=== PATIENT | male | born 1940 | race Caucasian/White ===

== ENCOUNTER → 2016-10-15 | Outpatient (CLI) | payer OTHER | END | disposition home or self-care (01) | LOC: C.PATHSPEC 17:29 | PROVIDERS: ATTEND Urology | DX: C61 Malignant neoplasm of prostate (principal); R97.20 Elevated prostate specific antigen [PSA] ==

== ENCOUNTER 2017-11-05 08:54 | Observation (INO) | payer OTHER ==
[2017-10-21 09:20] VITALS: BMI 37.0
[2017-10-24 12:09] VITALS: Ht 185.4 cm; Wt 133.8 kg
--- NOTE | 2017-10-24 12:09 | PAT Medication Instructions ---
Service Date Oct 24, 2017. Current Home Medication List Acetaminophen (Tylenol Arthritis Ext Rel), 1,300 MG PO Q8H PRN for PRN Albuterol Hfa (Ventolin Hfa), 2-4 PUFFS INH Q6H PRN for SOB/Wheezing Ascorbic Acid (Vitamin C), 1,000 MG PO QPM Atorvastatin (Lipitor), 1 TAB PO QPM Biotin (Biotin), 1 CAP PO QAM Calcium Carbonate-Cholecalcife (Caltrate 600+D), 1 TAB PO QPM Docusate Calcium (Stool Softener), 1 CAP PO QAM Glucosamine Sulfate (Glucosamine), 1,000 MG PO QPM Insulin Glargine (Lantus), 30 SC QAM Insulin Glargine (Lantus), 25 SC QPM Leflunomide (Arava), 1 TAB PO QAM Metformin Hcl (Glucophage Ext Rel), 1,000 MG PO BID Metoprolol Tartrate (Lopressor) (Lopressor), 12.5 MG PO BID Mirabegron (Myrbetriq Er), 50 MG PO QPM Multiple Vitamins W/ Minerals (Centrum Silver 50+Men), 1 TAB PO QAM Ocuvite Preservision (Ocuvite Preservision), 1 TAB PO BID Potassium Gluconate (Potassium Gluconate), 595 MG PO QPM Prednisone (Prednisone), 5 MG PO QAM Tamsulosin Hcl (Flomax), 1 CAP PO QPM [Humalog], 20-30 UNITS SC TIDM Medication Instructions For Your Scheduled Surgery - Check with surgeon and prescribing physician for instructions Leflunomide (Arava), 1 TAB PO QAM - Hold the following medications starting 10/24/17: Glucosamine Sulfate (Glucosamine), 1,000 MG PO QPM Biotin (Biotin), 1 CAP PO QAM - Hold the following medications the morning of surgery: [Humalog], 20-30 UNITS SC TIDM Ocuvite Preservision (Ocuvite Preservision), 1 TAB PO BID Multiple Vitamins W/ Minerals (Centrum Silver 50+Men), 1 TAB PO QAM Metformin Hcl (Glucophage Ext Rel), 1,000 MG PO BID Docusate Calcium (Stool Softener), 1 CAP PO QAM - Take the following medications the morning of surgery with a sip of water: Acetaminophen (Tylenol Arthritis Ext Rel), 1,300 MG PO Q8H PRN for PRN (okay to take up to 4 hours prior to surgery if needed) Albuterol Hfa (Ventolin Hfa), 2-4 PUFFS INH Q6H PRN for SOB/Wheezing (if needed) Metoprolol Tartrate (Lopressor) (Lopressor), 12.5 MG PO BID Prednisone (Prednisone), 5 MG PO QAM - Take the following medications as scheduled the night before surgery: [Humalog], 20-30 UNITS SC TIDM Tamsulosin Hcl (Flomax), 1 CAP PO QPM Potassium Gluconate (Potassium Gluconate), 595 MG PO QPM Ocuvite Preservision (Ocuvite Preservision), 1 TAB PO BID Mirabegron (Myrbetriq Er), 50 MG PO QPM Metoprolol Tartrate (Lopressor) (Lopressor), 12.5 MG PO BID Metformin Hcl (Glucophage Ext Rel), 1,000 MG PO BID Insulin Glargine (Lantus), 25 SC QPM Calcium Carbonate-Cholecalcife (Caltrate 600+D), 1 TAB PO QPM Atorvastatin (Lipitor), 1 TAB PO QPM Ascorbic Acid (Vitamin C), 1,000 MG PO QPM Acetaminophen (Tylenol Arthritis Ext Rel), 1,300 MG PO Q8H PRN for PRN (if needed) Albuterol Hfa (Ventolin Hfa), 2-4 PUFFS INH Q6H PRN for SOB/Wheezing (if needed) - For Insulin Dependent Diabetic patients: Test blood sugar A.M. of surgery. - If Blood sugar greater than 150, take half of your regular dose of: Insulin Glargine (Lantus) take 15 units - If blood sugar less than 150, do not take any: Insulin Glargine (Lantus), 30 SC QAM If you have any questions please call us at [phone] or [phone] or [phone]
--- NOTE | 2017-10-24 13:07 | DIAGNOSTIC IMAGING REPORT ---
CERVICAL SPINE 2 OR 3 VIEWS HISTORY: Preoperative evaluation PREOP, RHEUMATOID ARTHRITIS COMPARISON: None. FINDINGS: The cervical spine is visualized from C1 through the superior endplate of T1. There is no fracture. No subluxation. Disc spaces are preserved. Prevertebral soft tissues and the atlantodens interval are intact. IMPRESSION: No fracture or subluxation within the cervical spine. No evidence for subluxation with the patient in flexion and extension. The above report was generated using voice recognition software. It may contain grammatical, syntax or spelling errors. Electronically signed by: Darek Russo M.D. 10/24/2017 1:06 PM Dictated Date/Time: 10/24/2017 1:05 PM
--- NOTE | 2017-10-24 13:08 | DIAGNOSTIC IMAGING REPORT ---
CHEST 2 VIEWS ROUTINE HISTORY: 77 years-old Male PAT preoperative exam. No acute chest complaints COMPARISON: None available TECHNIQUE: PA and lateral views of the chest FINDINGS: Cardiac silhouette is mildly enlarged. Calcification of the aorta. Lungs are mildly hypoinflated. No pneumothorax or pleural effusion. Mild left hemidiaphragm elevation. Subsegmental linear left basilar opacities. No overt pulmonary edema. Degenerative changes of the shoulders and spine. IMPRESSION: 1. Cardiomegaly without overt pulmonary edema. 2. Mild left hemidiaphragm elevation with subsegmental left basilar opacities suggesting atelectasis. The above report was generated using voice recognition software. It may contain grammatical, syntax or spelling errors. Electronically signed by: Sharif Mathews M.D. 10/24/2017 1:06 PM Dictated Date/Time: 10/24/2017 1:05 PM
[2017-10-24 13:15] LABS: BASO % 0.1 %; BASO ABS # 0.01 K/uL (0-0.2); EOS % 1.2 %; HEMATOCRIT 41.5 % (42-52); HEMOGLOBIN 13.9 g/dL (14.0-18.0); IG# 0.02 K/uL (0.00-0.02); LYMPH % 16.1 %; LYMPH ABS # 1.37 K/uL (1.2-3.4); MEAN CELL VOLUME 95.2 fL (80-100); MEAN CORPUSCULAR HEMOGLOBIN 31.9 pg (25-34); MEAN CORPUSCULAR HGB CONC 33.5 g/dl (32-36); MEAN PLATELET VOLUME 10.4 fL (7.4-10.4); MONO % 14.3 %; MONO ABS # 1.22 K/uL (0.11-0.59); NEUT % 68.1 %; NEUT ABS # 5.79 K/uL (1.4-6.5); PLATELET COUNT 200 K/uL (130-400); RED CELL DISTRIBUTION WIDTH CV 13.5 % (11.5-14.5); WHITE BLOOD COUNT 8.51 K/uL (4.8-10.8)
[2017-10-24 13:27] LABS: CALCIUM 8.4 mg/dl (8.5-10.1); CREATININE 0.91 mg/dl (0.60-1.40); POTASSIUM 4.3 mmol/L (3.5-5.1)
[2017-11-05] VITALS (7 sets, daily range): BP systolic 126–163; BP diastolic 46–83; PULSE 54–68; TEMP 36.3–37.1; O2SAT 92–99
[~2017-11-05] VITALS: Ht 185.4 cm; Wt 133.8 kg
[~2017-11-05 08:54] MED LIST: ACET1TAB84 PO; ASCO10003 PO; ASPI81CH2 PO; ATOR-24 PO; BIOT1CAP3 PO; CALC-354 PO; CIPROFLOXACIN / D5W 400 MG IV SCH; DOCU1CAP78 PO; GLUC10007 PO; HUMALOG SC; INSDGI SC; LACTATED RINGER'S 1000ML 1,000 ML IV SCH; LEFL20TA PO; METF1TAB53 PO; METO25TA56 PO; MIRA100T PO; MISSING PHYSICIAN SIGNATURE ON ORDER SCH; MULT-1093 PO; MULT-190 PO; POTA1TAB PO; PRED-301 PO; TAMS0.4C38 PO; VNTHFA/IN INH
[2017-11-05] MEDS ORDERED: CIPROFLOXACIN 400MG / 200ML D5W ONE (09:53)
[2017-11-05] MEDS ORDERED: DEXAMETHASONE SOD INJ 4 MG/ML VIAL ONE (11:53)
[2017-11-05] MEDS ORDERED: LIDOCAINE HCL 2% 2 ML VIAL (20MG/ML) ONE (11:53)
[2017-11-05] MEDS ORDERED: FENTANYL CITRATE INJ 50 MCG/1 ML 2 ML VIAL ONE (11:54)
[2017-11-05] MEDS ORDERED: PROPOFOL IV EMULSION 10 MG/ML 20 ML VIAL ONE (11:54)
[2017-11-05] MEDS ORDERED: ONDANSETRON INJ 2 MG/ML 2 ML VIAL ONE ×2 (11:54→13:09)
--- NOTE | 2017-11-05 12:17 | History & Physical Bridge Note ---
H&P Re-Evaluation Bridge Note: I have examined the patient, reviewed the History & Physical and in the interval since the performance of the History & Physical I have noted the following changes of clinical significance: No changes noted
[2017-11-05] MEDS ORDERED: ATROPINE SULFATE 0.1 MG/ML 5ML SYR IV PRN (12:45)
[2017-11-05] MEDS ORDERED: EpHEDrine SULFATE INJ 50 MG/ML AMP IV PRN (12:45)
[2017-11-05] MEDS ORDERED: ONDANSETRON INJ 2 MG/ML 2 ML VIAL IV PRN ×2 (12:45→14:30)
[2017-11-05] MEDS ORDERED: EpHEDrine SULFATE 50MG/5ML SYR ONE (13:09)
[2017-11-05] MEDS ORDERED: PHENYLEPHRINE 100MCG/ML 5ML SYR ONE (13:09)
--- NOTE | 2017-11-05 14:13 | [facility] Operative Report ---
Operative Report Operative Date Nov 05, 2017. Pre-Operative Diagnosis Nocturia Post-Operative Diagnosis Nocturia Procedure(s) Performed Transurthral resection prostate Surgeon Dr. Page Almeida Contact Printer Dry Film Surgeon(s) none Estimated Blood Loss 10 ml Specimens A: prostate chips Drains 22F catheter Anesthesia Type General Disposition yes Recovery Room / PACU Description of Procedure Patient was identified in the preoperative holding area, appropriate informed consents reviewed and completed and the patient was transported to the operating suite. Upon arrival he received appropriate preoperative antibiotics in the form of ciprofloxacin. Adequate general anesthesia was achieved, he was placed in dorsal lithotomy position where he was sterilely prepped and draped in standard fashion. To begin the case I passed a 27 Bulgarian resectoscope with 30 lens and visual obturator. Inspection of the urethra revealed no evidence of stricture disease. Upon entering the prostate, it became abundantly clear that he has a significantly enlarged prostate with lateral lobe obstruction as well as a large intravesical component and high bladder neck. I was able to navigate the scope beyond the prostate and evaluate the bladder which revealed ureteral orifices to be in orthotopic position. He has a moderately trabeculated bladder. After my inspection I exchanged the visual apple peeler operator for resecting element, initially choosing a button electrode. I began by incising the bladder neck at 5 and 7:00 with care to avoid encroachment upon the ureteral orifices. I then exchange the button electrode for a loop device and resected intravesical median lobe flush with the bladder neck. I then proceeded to resect the left lateral lobe followed by the right lateral lobe with the button electrode. I then irrigated all chips out of the bladder utilizing a Kellie syringe as well as the instrument itself. I then returned to the button electrode and obtain meticulous hemostasis from the lateral maradiaga as well as continued vaporizing any redundant tissue. I concluded the resection by trimming the apical tissue and a small amount of redundant anterior tissue. I checked the bladder to be sure all chips were evacuated before emptying the bladder and withdrawing my scope. A 22 Bulgarian catheter was inserted without difficulty. The case was subsequent concluded and he was taken to the PACU in stable condition. I attest to the content of the Intraoperative Record and any orders documented therein. Any exceptions are noted below. I attest to the content of the Intraoperative Record and any orders documented therein. Any exceptions are noted below.
[2017-11-05] MEDS ORDERED: ACETAMINOPHEN 325 MG TAB PO PRN (14:30)
[2017-11-05] MEDS ORDERED: ALBUTEROL HFA 8 GM INHALER INH PRN (14:30)
[2017-11-05] MEDS ORDERED: ACETAMINOPHEN/CODEINE 300/30MG TAB PO PRN (14:30)
[2017-11-05] MEDS: FENTANYL CITRATE INJ 50 MCG/1 ML 2 ML VIAL IV PRN ×4 (14:32→14:55)
[2017-11-05] MEDS ORDERED: PHARMACY GLYCEMIC MGMT CONSULT PRN (15:17)
[2017-11-05] MEDS ORDERED: IV FLUIDS COMPLETED PRN (16:30)
--- NOTE | 2017-11-05 16:35 | Anesthesiology Progress Note ---
Anesthesia Post Op Note Date & Time Nov 05, 2017 at 16:35 Vital Signs Pain Intensity: 5.0 Vital Signs Past 12 Hours Date Time Temp Pulse Resp B/P (MAP) Pulse Ox O2 Delivery O2 Flow Rate FiO2 11/05/17 15:30 58 19 140/71 97 Nasal Cannula 2 11/05/17 15:15 53 14 132/70 99 Nasal Cannula 2 11/05/17 15:05 36.1 57 14 137/75 98 Nasal Cannula 2 11/05/17 14:55 60 17 144/69 98 Nasal Cannula 2 11/05/17 14:45 60 14 139/76 98 Nasal Cannula 2 11/05/17 14:35 62 12 130/77 100 Oxymask 10 11/05/17 14:25 65 16 141/78 98 Oxymask 10 11/05/17 14:16 36.1 68 14 142/76 98 Oxymask 10 11/05/17 09:28 37.1 60 18 163/83 (109) 95 Room Air Notes Mental Status: alert / awake / arousable, participated in evaluation Pt Amnestic to Procedure: Yes Nausea / Vomiting: adequately controlled Pain: adequately controlled Airway Patency, RR, SpO2: stable & adequate BP & HR: stable & adequate Hydration State: stable & adequate Anesthetic Complications: no major complications apparent
[2017-11-05] MEDS ORDERED: GLUCAGON FOR INJ 1 MG VIAL IM PRN (17:00)
[2017-11-05] MEDS ORDERED: GLUCOSE 10 TABS/TUBE PO PRN (17:00)
[2017-11-05] MEDS ORDERED: DEXTROSE 50% 50 ML SYR IV PRN (17:00)
[2017-11-05] MEDS ORDERED: GLUCOSE 40% GEL 15 GM TUBE PO PRN (17:00)
[2017-11-05] MEDS ORDERED: CARBOHYDRATES FOR HYPOGLYCEMIA PO PRN (17:00)
[2017-11-05] MEDS: INSULIN ASPART 100 UNITS/ML 3 ML PEN SC SCH ×2 (17:17→20:55)
[2017-11-05] MEDS: LACTATED RINGER'S 1000ML 1,000 ML IV SCH (20:13)
[2017-11-05] MEDS: CIPROFLOXACIN 500 MG TAB PO SCH (20:49)
[2017-11-05] MEDS: CEROVITE ADV FORMULA TAB PO SCH (20:49)
[2017-11-05] MEDS: METOPROLOL TARTRATE 25 MG TAB PO SCH (20:50)
[2017-11-05] MEDS ORDERED: NON-FORMULARY MEDICATION (Potassium Gluconate 595 MG) PO SCH (21:00)
[2017-11-05] MEDS ORDERED: ATORVASTATIN 40 MG TAB PO SCH (21:00)
[2017-11-05] MEDS ORDERED: LANTUS PER UNIT CHARGE SQ STA (21:33)
[2017-11-06] MEDS ORDERED: NURSING DECISION MEDICATION ORDER SCH (00:30)
[2017-11-06] MEDS ORDERED: INSULIN ASPART 100 UNITS/ML 3 ML PEN SC SCH (02:00)
[2017-11-06] MEDS: LACTATED RINGER'S 1000ML 1,000 ML IV SCH ×2 (03:45→12:00)
[2017-11-06 04:04] VITALS: BP 122/66; PULSE 63; TEMP 36.8; O2SAT 93
[2017-11-06 06:57] LABS: BASO % 0.1 %; BASO ABS # 0.01 K/uL (0-0.2); EOS % 0.1 %; EOS ABS # 0.01 K/uL (0-0.5); HEMATOCRIT 40.3 % (42-52); HEMOGLOBIN 13.8 g/dL (14.0-18.0); IG# 0.02 K/uL (0.00-0.02); LYMPH % 10.9 %; LYMPH ABS # 1.12 K/uL (1.2-3.4); MEAN CORPUSCULAR HEMOGLOBIN 32.5 pg (25-34); MEAN CORPUSCULAR HGB CONC 34.2 g/dl (32-36); MEAN PLATELET VOLUME 10.2 fL (7.4-10.4); MONO ABS # 1.34 K/uL (0.11-0.59); NEUT % 75.7 %; PLATELET COUNT 186 K/uL (130-400); RED CELL DISTRIBUTION WIDTH CV 13.3 % (11.5-14.5); RED CELL DISTRIBUTION WIDTH SD 45.9 fL (36.4-46.3)
[2017-11-06 07:18] LABS: HEMOGLOBIN A1C 6.7 % (4.5-5.6)
[2017-11-06 07:37] LABS: CALCIUM 8.5 mg/dl (8.5-10.1); CREATININE 0.94 mg/dl (0.60-1.40)
[2017-11-06 07:56] VITALS: BP 128/74; PULSE 58; TEMP 37.1; O2SAT 94
[2017-11-06] MEDS ORDERED: PHEN95TA14 PO ×2 (08:04→08:10)
[2017-11-06] MEDS ORDERED: CPR500 PO (08:04)
--- NOTE | 2017-11-06 08:05 | Discharge Instructions ---
Discharge Instructions Date of Service Nov 06, 2017. Admission Reason for Admission: Benign Prostatic Hyperplasia W/Urinary Obstruction Discharge Discharge Diagnosis / Problem: BPH Discharge Goals Goal(s): Decrease discomfort, Improve function, Increase independence, Improve disease control, Prevent Disease Progression Activity Recommendations Activity Limitations: resume your previous activity Lifting Limitations: none Exercise/Sports Limitations: none May Resume Sexual Activity: when tolerated Shower/Bathe: no limitations Driving or Machine Use: no limitations . Instructions / Follow-Up Instructions / Follow-Up Please keep your previously scheduled follow up appointment with Dr. Almeida Current Hospital Diet Patient's current hospital diet: Diabetes Type 2 Diet Discharge Diet Recommended Diet: Diabetes Type 2 Diet Procedures Procedures Performed: Transurthral resection prostate Pending Studies Studies pending at discharge: no Laboratory Results Hemoglobin A1c Test 11/06/17 06:15 Range/Units Estimated Average Glucose 146 mg/dl Hemoglobin A1c 6.7 H 4.5-5.6 % Medical Emergencies . Who to Call and When: Medical Emergencies: If at any time you feel your situation is an emergency, please call 911 immediately. . Non-Emergent Contact Non-Emergency issues call your: Urologist Call Non-Emergent contact if: you have a fever, temperature is above 101.5, your pain is not controlled, your pain is worsening . . "Provider Documentation" section prepared by Crow Moran. .
[2017-11-06] MEDS ORDERED: CIPR-255 PO (08:10)
[2017-11-06 08:24] VITALS: O2SAT 94
[2017-11-06] MEDS ORDERED: METFORMIN HCL 500 MG TABCR PO SCH (08:30)
--- NOTE | 2017-11-06 08:32 | Progress Note ---
Progress Note Date of Service Nov 06, 2017. Progress Note S: no issues overnight - no pain - tolerating diet - ambulatory O: 11/06/17 06:15 Red Blood Count 4.24, Mean Corpuscular Volume 95.0, Mean Corpuscular Hemoglobin 32.5, Mean Corpuscular Hemoglobin Concent 34.2, Mean Platelet Volume 10.2, Neutrophils (%) (Auto) 75.7, Lymphocytes (%) (Auto) 10.9, Monocytes (%) (Auto) 13.0, Eosinophils (%) (Auto) 0.1, Basophils (%) (Auto) 0.1, Neutrophils # (Auto ) 7.80, Lymphocytes # (Auto) 1.12, Monocytes # (Auto) 1.34, Eosinophils # (Auto ) 0.01, Basophils # (Auto) 0.01 11/06/17 06:15 Test 11/06/17 06:15 11/06/17 08:07 White Blood Count 10.30 K/uL (4.8-10.8) Red Blood Count 4.24 M/uL (4.7-6.1) Hemoglobin 13.8 g/dL (14.0-18.0) Hematocrit 40.3 % (42-52) Mean Corpuscular Volume 95.0 fL (80-100) Mean Corpuscular Hemoglobin 32.5 pg (25-34) Mean Corpuscular Hemoglobin Concent 34.2 g/dl (32-36) Platelet Count 186 K/uL (130-400) Mean Platelet Volume 10.2 fL (7.4-10.4) Neutrophils (%) (Auto) 75.7 % Lymphocytes (%) (Auto) 10.9 % Monocytes (%) (Auto) 13.0 % Eosinophils (%) (Auto) 0.1 % Basophils (%) (Auto) 0.1 % Neutrophils # (Auto) 7.80 K/uL (1.4-6.5) Lymphocytes # (Auto) 1.12 K/uL (1.2-3.4) Monocytes # (Auto) 1.34 K/uL (0.11-0.59) Eosinophils # (Auto) 0.01 K/uL (0-0.5) Basophils # (Auto) 0.01 K/uL (0-0.2) RDW Standard Deviation 45.9 fL (36.4-46.3) RDW Coefficient of Variation 13.3 % (11.5-14.5) Immature Granulocyte % (Auto) 0.2 % Immature Granulocyte # (Auto) 0.02 K/uL (0.00-0.02) Anion Gap 5.0 mmol/L (3-11) Est Creatinine Clear Calc Drug Dose 97.4 ml/min Estimated GFR () 91.6 Estimated GFR (Non- 79.0 BUN/Creatinine Ratio 17.2 (10-20) Estimated Average Glucose 146 mg/dl Hemoglobin A1c 6.7 % (4.5-5.6) Calcium Level 8.5 mg/dl (8.5-10.1) Bedside Glucose 179 mg/dl (70-99) Vital Signs Past 12 Hours Date Time Temp Pulse Resp B/P (MAP) Pulse Ox O2 Delivery O2 Flow Rate FiO2 11/06/17 08:24 94 Room Air 11/06/17 08:10 Room Air 11/06/17 07:56 37.1 58 18 128/74 (92) 94 Room Air 11/06/17 04:04 36.8 63 16 122/66 (84) 93 Room Air 11/06/17 00:10 Room Air 11/05/17 23:27 36.9 54 16 126/76 (93) 92 Room Air 11/05/17 20:47 60 137/78 (97) NAD AAOx3 abd soft urine clearing A/P: POD #1 s/p TURP - voiding trial - d/c home after void
[2017-11-06] MEDS ORDERED: INSULIN GLARGINE SOLOSTAR 100 UNITS/ML 3 ML PEN SC ONE (08:45)
[2017-11-06] MEDS: CIPROFLOXACIN 500 MG TAB PO SCH (08:51)
[2017-11-06] MEDS: METOPROLOL TARTRATE 25 MG TAB PO SCH (08:51)
[2017-11-06] MEDS: CEROVITE ADV FORMULA TAB PO SCH (08:51)
[2017-11-06] MEDS: INSULIN ASPART 100 UNITS/ML 3 ML PEN SC SCH ×2 (08:54→12:49)
--- NOTE | 2017-11-06 08:55 | Pharmacy Progress Note ---
Glycemic Control Intl Consult Date of Service Nov 06, 2017. Scope Glycemic Pharmacist consulted by Dr Almeida on 11/05/17 for glycemic control and to write orders per [facility] inpatient glycemic control protocol Objective Weight (Kilograms): 133.8 Accuchecks BSG (last 24hrs): Test 11/05/17 09:24 11/05/17 14:19 11/05/17 16:14 11/05/17 20:42 Bedside Glucose 91 mg/dl (70-99) 105 mg/dl (70-99) 105 mg/dl (70-99) 194 mg/dl (70-99) Test 11/06/17 02:00 11/06/17 06:15 11/06/17 08:07 Bedside Glucose 167 mg/dl (70-99) 179 mg/dl (70-99) Random Glucose 161 mg/dl (70-99) Laboratory Data (last 24hrs) Test 11/06/17 06:15 11/06/17 07:51 11/06/17 08:30 Anion Gap 5.0 mmol/L BUN/Creatinine Ratio 17.2 Blood Urea Nitrogen 16 mg/dl Creatinine 0.94 mg/dl Hemoglobin A1c 6.7 % Potassium Level mmol/L mmol/L Sodium Level 136 mmol/L White Blood Count 10.30 K/uL Red Blood Count 4.24 M/uL Hemoglobin 13.8 g/dL Hematocrit 40.3 % Mean Corpuscular Volume 95.0 fL Mean Corpuscular Hemoglobin 32.5 pg Mean Corpuscular Hemoglobin Concent 34.2 g/dl Platelet Count 186 K/uL Mean Platelet Volume 10.2 fL Neutrophils (%) (Auto) 75.7 % Lymphocytes (%) (Auto) 10.9 % Monocytes (%) (Auto) 13.0 % Eosinophils (%) (Auto) 0.1 % Basophils (%) (Auto) 0.1 % Neutrophils # (Auto) 7.80 K/uL Lymphocytes # (Auto) 1.12 K/uL Monocytes # (Auto) 1.34 K/uL Eosinophils # (Auto) 0.01 K/uL Basophils # (Auto) 0.01 K/uL HbA1c Test 11/06/17 06:15 Hemoglobin A1c 6.7 % (4.5-5.6) H Recent Pertinent Medications Outpatient Anti-diabetic Regimen: * Lantus 30 units SQ qAM, 25 units SQ qPM + Humalog 20-30 units SQ TID with meals * Metformin ER 1000 mg PO BID The patient is currently receiving: * Basal insulin: Lantus 40 units x 1 dose ordered 8 PM * Correctional Insulin: Novolog Correction per scale ACHS Goal Range: Low 110 mg/dL - High 150 mg/dL Correction Factor: 20 mg/dL/unit * Prandial insulin: Per carb ratio of 1 unit per 6 grams CHO consumed * Oral Agents: on hold Risk Factors for Insulin Resistance: * Steroids: DXM 4 mg IV given in the OR * Recent Surgery: s/p transurethral resection of prostate * Diet: T2DM Assessment & Plan ASSESSMENT: * 77 yr old T2DM male POD #1 s/p transurethral resection of the prostate. * Patient is well controlled at home on Lantus, Humalog with meals, and metformin. He takes 115 - 145 units of insulin per day. * He was administered a single dose of dexamethasone IV in the OR and was continued on his home dose of prednisone 5 mg daily. * Changes needed to insulin regimen: * Fasting BSG of 179 mg/dL is above goal. This is likely due to basal deficiency (AM dose of Lantus 30 units was held yesterday for surgery) and stress from surgery/steroid. I will give a second dose of Lantus 40 units this morning (25% increase compared to home dose) and order Lantus dose based on scale for HS. Will attempt to resume patient's home doses of Lantus on 11/07. * Post prandial BSGs are elevated. I will tighten correction factor and carb ratio to 12/4 based on home dose of ~130 units per day. PLAN FOR INPATIENT GLYCEMIC CONTROL: * Resume metformin ER 1000 mg BID today with dinner * Basal insulin * Lantus 40 units SQ this AM * Lantus 20-30 units SQ tonight (20 units if < 110, 25 units if 110-150, 30 units if > 150) * Bolus Insulin - tighten CF and carb ratio * NOVOLOG per scale ACHS or Q6hrs while NPO * Goal Range: Low 110 mg/dL - High 150 mg/dL * Correction Factor: 12 mg/dL/unit * Nutritional / Prandial insulin per carb ratio of 1 unit per 4 grams CHO consumed DISCHARGE RECOMMENDATIONS: * Excellent outpatient glycemic control evidenced by A1c of 6.7%. * Continue home regimen on discharge Thank you.
[2017-11-06 08:58] VITALS: O2SAT 94
[2017-11-06] MEDS ORDERED: CEROVITE ADV FORMULA TAB PO SCH (09:00)
[2017-11-06] MEDS ORDERED: DOCUSATE CALCIUM 240 MG CAP PO SCH (09:00)
--- NOTE | 2017-11-06 09:07 | Anesthesiology Progress Note ---
Anesthesia Post Op Note Date & Time Nov 06, 2017 at 09:07 Vital Signs Pain Intensity: 0.0 Vital Signs Past 12 Hours Date Time Temp Pulse Resp B/P (MAP) Pulse Ox O2 Delivery O2 Flow Rate FiO2 11/06/17 08:58 94 Room Air 11/06/17 08:24 94 Room Air 11/06/17 08:10 Room Air 11/06/17 07:56 37.1 58 18 128/74 (92) 94 Room Air 11/06/17 04:04 36.8 63 16 122/66 (84) 93 Room Air 11/06/17 00:10 Room Air 11/05/17 23:27 36.9 54 16 126/76 (93) 92 Room Air Notes Mental Status: alert / awake / arousable, participated in evaluation Pt Amnestic to Procedure: Yes Nausea / Vomiting: adequately controlled Pain: adequately controlled Airway Patency, RR, SpO2: stable & adequate BP & HR: stable & adequate Hydration State: stable & adequate Anesthetic Complications: no major complications apparent
[2017-11-06 11:27] VITALS: BP 128/74; PULSE 58; TEMP 37.1; O2SAT 94
[2017-11-06 11:57] VITALS: BP 153/71; PULSE 54; TEMP 36.8; O2SAT 97
[2017-11-06] MEDS ORDERED: INSULIN GLARGINE SOLOSTAR 100 UNITS/ML 3 ML PEN SC SCH (21:00)
--- NOTE | 2017-11-07 08:19 | Discharge Summary ---
Discharge Summary Date of Service Nov 07, 2017. Admission Date/Reason Nov 05, 2017 at 14:31 Benign Prostatic Hyperplasia W/Urinary Obstruction. Discharge Date/Disposition Nov 06, 2017 Home Diagnosis Principal Diagnosis: Voiding dysfunction; prostate cancer Medication Reconciliation New Medications: Ciprofloxacin Hcl (Cipro) 500 Mg Tab 500 MG PO BID, #6 TAB Phenazopyridine Hcl (Azo Tabs) 95 Mg Tab 2 TABS PO Q8 for dysuria, #20 TABS Continued Medications: Acetaminophen (Tylenol Arthritis Ext Rel) 650 Mg Cplt 1300 MG PO Q8H PRN for PRN, CAP Albuterol Hfa (Ventolin Hfa) 200 Puffs/71026 Mcg Aers 2-4 PUFFS INH Q6H PRN for SOB/Wheezing, #1 INHALER Ascorbic Acid (Vitamin C) 1,000 Mg Tab 1000 MG PO QPM Aspirin (Aspirin) 81 Mg Chw 1 TAB PO DAILY for 90 Days, #90 TAB 3 Refills Atorvastatin (Lipitor) 40 Mg Tab 1 TAB PO QPM for 30 Days, TAB 5 Refills Biotin (Biotin) 5,000 Mcg Cap 1 CAP PO QAM Calcium Carbonate-Cholecalcife (Caltrate 600+D) 1 Tab Tab 1 TAB PO QPM Docusate Calcium (Stool Softener) 240 Mg Cap 1 CAP PO QAM Glucosamine Sulfate (Glucosamine) 1,000 Mg Tab 1000 MG PO QPM, TAB Insulin Glargine (Lantus) 100 Unit/Ml Inj 30 SC QAM, VIAL Insulin Glargine (Lantus) 100 Unit/Ml Inj 25 SC QPM, VIAL Leflunomide (Arava) 20 Mg Tab 1 TAB PO QAM for 30 Days, #30 TAB Metformin Hcl (Glucophage Ext Rel) 1,000 Mg Tab 1000 MG PO BID, TAB Metoprolol Tartrate (Lopressor) (Lopressor) 25 Mg Tab 12.5 MG PO BID, TAB Mirabegron (Myrbetriq Er) 25 Mg Tab 50 MG PO QPM, TAB Multiple Vitamins W/ Minerals (Centrum Silver 50+Men) 1 Tab Tab 1 TAB PO QAM Ocuvite Preservision (Ocuvite Preservision) 1 Tab Tab 1 TAB PO BID, TAB Potassium Gluconate (Potassium Gluconate) 595 Mg Tab 595 MG PO QPM Prednisone (Prednisone) 5 Mg Tab 5 MG PO QAM, TAB [Humalog] () 20-30 UNITS SC TIDM Discontinued Medications: Tamsulosin Hcl (Flomax) 0.4 Mg Cap 1 CAP PO QPM for 30 Days, CAP 5 Refills Admission Physical Exam As per Admitting History & Physical. Hospital Course Admitted for TURP - tolerated procedure very well - progressed appropriately overnight - passed a voiding trial on the morning of POD#1 - d/c home in stable condition Discharge Instructions Please refer to the electronic Patient Visit Report (Discharge Instructions) for additional information.
== END 2017-11-06 13:21 | disposition home or self-care (01) ==
LOC: C.ACU 08:54 → C.MSN 14:31 → ENRESERV 15:30
PROVIDERS: ADMIT Urology; ATTEND Urology
DX: R35.1 Nocturia (principal); C61 Malignant neoplasm of prostate; J44.9 Chronic obstructive pulmonary disease, unspecified; E11.9 Type 2 diabetes mellitus without complications; I25.10 Atherosclerotic heart disease of native coronary artery without angina pectoris; I25.2 Old myocardial infarction; Z79.82 Long term (current) use of aspirin; Z79.899 Other long term (current) drug therapy; Z79.4 Long term (current) use of insulin; Z79.84 Long term (current) use of oral hypoglycemic drugs; E66.9 Obesity, unspecified; Z68.39 Body mass index [BMI] 39.0-39.9, adult